=== PATIENT | female | born 1985 | race Two or more races ===

== ENCOUNTER → 2018-05-16 | Outpatient (CLI) | payer OTHER ==
--- NOTE | 2018-05-18 13:14 | RADIOLOGY REPORT (SQ) ---
EXAM DESCRIPTION: MRI RT LOWER EXTREMITY WITHOUT COMPLETED DATE/TIME: 05/16/2018 5:51 pm REASON FOR STUDY: M79.671 PAIN IN RIGHT FOOT M79.671 PAIN IN RIGHT FOOT M66.879 SPONTANEOUS RUPTUR E OF OTHER TENDONS, UNSP ANKLE AND COMPARISON: None. TECHNIQUE: T1-weighted, T2-weighted, and gradient echo noncontrast multiplanar imaging of the right foot. LIMITATIONS: None. FINDINGS: MARROW SIGNAL: No marrow signal alteration. No occult fracture. No evidence for osteo ne crosis. JOINT EFFUSION: No significant effusions. PLANTAR FASCIA: Normal as visualized. TARSOMETATARSAL AND TOE ARTICULATIONS: Anatomic. Mild degenerative changes first metatarsal phalange al joint. INTERMETATARSAL SPACES AND PLANTAR PLATES: Intact. No soft tissue mass to suggest a neuroma. SOFT TISSUES: There is a tear of the extensor hallucis longus tendon at about the level of the 1st me tatarsophalangeal joint. A gap in the extensor hallucis tendon is present about 1.5 cm in length. T his is best shown on coronal fat-sat T2 images 21 through 25. HINDFOOT AND ANKLE: No other significant finding. IMPRESSION: TEAR OF THE EXTENSOR HALLUCIS LONGUS TENDON AT ABOUT THE LEVEL OF THE 1ST METATARSOPHALA NGEAL JOINT. 1.5 CM LONG GAP IN THE EXTENSOR HALLUCIS TENDON IS PRESENT TECHNICAL DOCUMENTATION: JOB ID: [id number] [email or web address]- All Rights Reserved Reading location - IP/workstation name: [email or web address]
== END ==
LOC: RAD 17:59
PROVIDERS: ATTEND Orthopaedic Surgery Sports Medicine
DX: M79.671 Pain in right foot (principal); M66.879 Spontaneous rupture of other tendons, unspecified ankle and foot